=== PATIENT | male | born 1985 | race Caucasian/White ===

== ENCOUNTER 2017-11-18 19:43 | Emergency (ER) | payer OTHER, BC ==
[2017-11-18] MEDS: DIPHTH/TET/ACEL PERTUSS (ADULT) 0.5 ML VIAL IM* (21:33)
[2017-11-18] MEDS: LIDOCAINE 1% (MDV) 10 ML INJ INJ (21:33)
== END 2017-11-18 23:01 | disposition home or self-care (01) ==
LOC: FTE 19:43
DX: S61.211A Laceration without foreign body of left index finger without damage to nail, initial encounter (principal); W23.0XXA Caught, crushed, jammed, or pinched between moving objects, initial encounter; Y92.9 Unspecified place or not applicable; Z23 Encounter for immunization
CPT/HCPCS: 12001; 90471; 90715; 99283-25